=== PATIENT | male | born 1985 | race Caucasian/White ===

== ENCOUNTER → 2020-01-29 13:17 | Outpatient (BNVA) | payer SELFPAY | PROVIDERS: Visit Provider Nurse Practitioner Family | DX: J06.9 Acute upper respiratory infection, unspecified (principal); Z11.59 Encounter for screening for other viral diseases | CPT/HCPCS: 87635 ==

== ENCOUNTER 2021-11-21 11:24 | Emergency (ER) | payer OTHER, SELFPAY ==
[2021-11-21 11:26] VITALS: BP 119/73; PULSE 110; RESP 14; TEMP 37.9; O2SAT 97
--- NOTE | 2021-11-21 11:45 | XRR_ITS ---
PROCEDURE INFORMATION: Exam: XR Chest Exam date and time: 11/21/2021 2:16 PM Age: 36 years old Clinical indication: Dyspnea TECHNIQUE: Imaging protocol: Radiologic exam of the chest. Views: 1 view. COMPARISON: No relevant prior studies available. FINDINGS: Lungs: Unremarkable. No consolidation. Pleural spaces: Unremarkable. No pleural effusion. No pneumothorax. Heart/Mediastinum: Unremarkable. No cardiomegaly. Bones/joints: No acute abnormality. XR/XR chest 1V portable [id number] IMPRESSION: No acute findings.
[2021-11-21 13:25] LABS: Basophils % 0.3 %; Eosinophils # 0.1 10^3/uL (0.0-0.8); Eosinophils % 0.9 %; Hematocrit 45.3 % (42.0-52.0); Hemoglobin 16.2 g/dL (11.7-16.6); Lymphocytes # 0.4 10^3/uL (0.8-4.8); Lymphocytes % 4.2 %; Mean Corpuscular HGB Conc 35.8 g/dL (30.0-36.0); Mean Corpuscular Hemoglobin 30.2 pg (28.0-34.0); Mean Corpuscular Volume 84.4 fl (80-94); Mean Platelet Volume 10.7 fL (7.4-10.4); Monocytes % 9.6 %; Neutrophils # 8.51 10^3/uL (1.8-7.7); Neutrophils % 84.4 %; Nucleated Red Blood Cells % 0 %; Platelet Count 195 10^3/cmm (130-400); Red Blood Count 5.37 10^6/uL (4.1-5.3); Red Cell Distribution Width 11.5 % (12.1-15.1); White Blood Count 10.1 10^3/uL (4.0-10.0)
[2021-11-21 13:56] LABS: Anion Gap 16.1 (5-19); Blood Urea Nitrogen 9 mg/dL (6-20); Calcium 9.2 mg/dL (8.5-10.5); Carbon Dioxide 23 mmol/L (22-29); Chloride 101 mmol/L (98-107); Glomerular Filtration Rate 127.6 mL/min (90-130); Glucose 98 mg/dL (65-115); Osmolality Calculated 281 mOsm/kg (285-295); Potassium 4.1 mmol/L (3.5-5.1); Sodium 136 mmol/L (136-145)
--- NOTE | 2021-11-21 15:18 | ED_ITS ---
HPI - General Adult General: Chief complaint: General Medical Stated complaint: Chest pain, dizzy, sob Time Seen by Provider: 11/21/21 14:13 History of Present Illness: Patient is a 36-year-old male without any significant past medical who presents the emergency room after waking up at 5 AM with fatigue, generalized weakness, diffuse body aches, chest pressure, fatigue fever/chill and cough. Patient tells me that he has not been feeling well after waking up. Patient denies any sick contact reaction. Patient denies any loss of taste or smell. Patient denies any diarrhea, or decreased p.o. intake. No other focal complaints at this time. Onset:500am Duration:ongoing Location:home Severity:moderate Associated symptoms: Reports chest pain and malaise; Deny dyspnea, nausea, rash, palpitations or vomiting Review of Systems Const: Reports: chills, fatigue, malaise and other (+generalized weakness); Denies: fever(s) Eyes: Denies: change in vision ENMT: Denies: mouth pain Card: Reports: chest pain; Denies: palpitations Resp: Reports: non-productive cough; Denies: dyspnea GI: Denies: abdominal pain, nausea, vomiting or diarrhea : Denies: dysuria Musc: Denies: extremity pain Skin/Breast: Denies: rash or new lesions Neuro: Denies: weakness in extremities Psych: Reports: other (Normal mood) Bartolo/Lymph: Denies: easy bruising ON LICENSE OF [facility] ED PFSH: Medical History No pertinent past medical history Social History Smoking and tobacco status: never smoked Alcohol intake: never Substance/Drug Use: never Physical Exam Const: COMMON NORMALS: alert HENMT: COMMON NORMALS: atraumatic HEAD & SCALP: atraumatic MOUTH: moist mucous membranes abnormal Eye: COMMON NORMALS: EOMs intact bilaterally and conjunctivae normal CONJUNCTIVA: Yes conjunctivae normal Neck/C-Spine: COMMON NORMALS: full ROM and supple Resp: COMMON NORMALS: normal respiratory effort and clear to auscultation bilaterally AUSCULTATION: clear to auscultation bilaterally Cardio: RATE: tachycardic GI: COMMON NORMALS: Soft to palpation and non-tender PALPATION: Yes Soft to palpation Extremity: COMMON NORMALS: full ROM Neuro: SENSORIUM/ORIENTATION: Yes alert MOTOR EXAM: No Abnormal motor strength present and Other motor observations present (no focal motor deficits) Psych: COMMON NORMALS: speech normal SPEECH: Yes normal speech MOOD & AFFECT: Yes euthymic mood Course Vital Signs: Vital signs: Vital Signs Temperature 100.2 F H 11/21/21 11:26 Pulse Rate 89 11/21/21 16:21 Respiratory Rate 16 11/21/21 16:21 Blood Pressure 119/79 11/21/21 16:21 Pulse Oximetry 96 11/21/21 16:21 MDM - General Adult Medical Decision Making 36-year male presenting to the emergency room with concerns of cough, chest fever/chills, generalized weakness, body ache and chest pressure. Symptoms has been going on since 5 AM this morning. She has a low-grade fever 100.2 degrees axillary, mildly tachycardic to 110s, and is noted to have dry mucous membrane. Patient received 1 L fluid and tyleonl and reports improvement in pain. Symptoms are likely viral in nature. Viral swabs are sent at this time. HR improved after IVF. Patient has been able to tolerate PO in the ER. COVID swabs are sent at this time. Patient is instructed follow-up with [facility] of the next 24 to 48 hours. Patient will be excused from work until he has his COVID status result. Rx: Tylenol PRN pain Disposition: Discharge. Patient counseled regarding diagnostic impression, treatment plan. Patient given ED strict return precautions to return for continuation, worsening, or development of new symptoms. Instructed to f/u w/ PCP regarding symptoms today. Patient verbalized understanding. Lab Data : 11/21/21 13:11 11/21/21 13:11 Radiology Impressions Chest X-Ray 11/21/21 11:45 IMPRESSION: No acute findings. Laboratory Results WBC 10.1 10^3/uL (4.0-10.0) H 11/21/21 13:11 RBC 5.37 10^6/uL (4.1-5.3) H 11/21/21 13:11 Hgb 16.2 g/dL (11.7-16.6) 11/21/21 13:11 Hct 45.3 % (42.0-52.0) 11/21/21 13:11 MCV 84.4 fl (80-94) 11/21/21 13:11 MCH 30.2 pg (28.0-34.0) 11/21/21 13:11 MCHC 35.8 g/dL (30.0-36.0) 11/21/21 13:11 RDW 11.5 % (12.1-15.1) L 11/21/21 13:11 Plt Count 195 10^3/cmm (130-400) 11/21/21 13:11 MPV 10.7 fL (7.4-10.4) H 11/21/21 13:11 Neut % (Auto) 84.4 % 11/21/21 13:11 Lymph % (Auto) 4.2 % 11/21/21 13:11 [place] % (Auto) 9.6 % 11/21/21 13:11 Eos % (Auto) 0.9 % 11/21/21 13:11 Baso % (Auto) 0.3 % 11/21/21 13:11 Neut # (Auto) 8.51 10^3/uL (1.8-7.7) H 11/21/21 13:11 Lymph # (Auto) 0.4 10^3/uL (0.8-4.8) L 11/21/21 13:11 [place] # (Auto) 1.0 10^3/uL (0.2-0.9) H 11/21/21 13:11 Eos # (Auto) 0.1 10^3/uL (0.0-0.8) 11/21/21 13:11 Baso # (Auto) 0.0 10^3/uL (0.0-0.1) 11/21/21 13:11 Nucleated RBC % (auto) 0 % 11/21/21 13:11 Nucleated RBCs # 0.0 /100WBC 11/21/21 13:11 Sodium 136 mmol/L (136-145) 11/21/21 13:11 Potassium 4.1 mmol/L (3.5-5.1) 11/21/21 13:11 Chloride 101 mmol/L (98-107) 11/21/21 13:11 Carbon Dioxide 23 mmol/L (22-29) 11/21/21 13:11 Anion Gap 16.1 (5-19) 11/21/21 13:11 BUN 9 mg/dL (6-20) 11/21/21 13:11 Creatinine 0.7 mg/dL (0.7-1.2) 11/21/21 13:11 GFR Calculation 127.6 mL/min (90-130) 11/21/21 13:11 Glucose 98 mg/dL (65-115) 11/21/21 13:11 Calculated Osmolality 281 mOsm/kg (285-295) L 11/21/21 13:11 Calcium 9.2 mg/dL (8.5-10.5) 11/21/21 13:11 Influenza Type A Ag Negative (Negative) 11/21/21 15:18 Influenza Type B Ag Negative (Negative) 11/21/21 15:18 Imaging Data Other Imaging: Radiologist's impression: [id number] [id number] XRay Report Signed Patient: Ivan Tamez Unit #: [id number] : 1985 Age/Sex: 36 / M ADM Date: 11/21/21 Loc: ER Room/Bed: Attending Dr: Ordering Provider/Ordering MD: Rhianna Garcia MD Date of Service: 11/21/21 Procedure(s): XR chest 1V portable [id number] Accession Number(s): [id number] Report Number: [id number] PROCEDURE INFORMATION: Exam: XR Chest Exam date and time: 11/21/2021 2:16 PM Age: 36 years old Clinical indication: Dyspnea TECHNIQUE: Imaging protocol: Radiologic exam of the chest. Views: 1 view. COMPARISON: No relevant prior studies available. FINDINGS: Lungs: Unremarkable. No consolidation. Pleural spaces: Unremarkable. No pleural effusion. No pneumothorax. Heart/Mediastinum: Unremarkable. No cardiomegaly. Bones/joints: No acute abnormality. XR/XR chest 1V portable [id number] IMPRESSION: No acute findings. ? Dictated By: Farida Chairez Signed By: Farida Chairez Signed Date/Time: 11/21/21 1511 DD/ 1416 Discharge Plan Discharge Patient Disposition: Home Clinical Impression: Cough, Generalized weakness, Fatigue Condition: Stable Prescriptions: New acetaminophen 500 mg tablet 500 mg PO Q6H PRN (Reason: pain) 5 Days Qty: 20 0RF No Action omeprazole 20 mg Capsule,Delayed Release(Dr/Ec) 20 mg PO DAILY PRN (Reason: Acid Reflux) 0RF Discharge Orders: Discharge ED (Routine); Ordered 11/21/21 Ordered By: Rhianna Garica Discharge Diet: Advance as tolerated Discharge Activity: Increase activity as tolerated Patient Instructions: Acute Cough (ED) Activity Restrictions/Additional Instructions: Come back to the emergency room if your symptoms worsen, have any shortness of breath, fever/chills, dehydration, inability tolerate food or drinks, any difficulty breathing, or any new or concerning complaints. Stand Alone Forms: Work/School Release Coding Level of Care Code ED Senior Linux Systems Administrator for [employer] Fwd Exam Comprehensive
[2021-11-21] MEDS: sodium chloride 0.9% 1,000 ML 999 ML IV (15:23)
[2021-11-21] MEDS: acetaminophen 500 mg Tablet 1000 MG PO (15:23)
[2021-11-21 16:21] VITALS: BP 119/79; PULSE 89; RESP 16; O2SAT 96
[2021-11-21 16:22] LABS: Influenza A by IFA Negative (Negative); Influenza B by IFA Negative (Negative)
[2021-11-21 16:28] VITALS: TEMP 36.9
[2021-11-23 15:02] LABS: Quest SARS-CoV-2 RNA DETECTED (NOT DETECTED)
== END 2021-11-21 17:06 | disposition home or self-care (01) ==
PROVIDERS: Emergency Provider Emergency Medicine
DX: U07.1 COVID-19 (principal)
CPT/HCPCS: 71045; 80048; 85025; 87635; 87804; 96360; 99285; J7030

== ENCOUNTER → 2022-12-07 09:36 | Outpatient (BNVA) | payer OTHER, SELFPAY | PROVIDERS: Visit Provider Emergency Medicine | DX: M25.561 Pain in right knee (principal); L03.115 Cellulitis of right lower limb | CPT/HCPCS: 73562 ==

== ENCOUNTER 2022-12-09 04:49 | Emergency (ER) | payer OTHER, SELFPAY ==
--- NOTE | 2022-12-09 04:54 | ED_ITS ---
Documented by User: Humphrey Menendez MD 12/21/22 19:03 HPI - Extremity Problem General: Chief complaint: Extremity Injury, Lower Stated complaint: Rt Knee Swollen\Injury Time Seen by Provider: 12/09/22 04:53 History of Present Illness: Mr. Tamez is a 37-year-old gentleman without significant past medical history presenting to the emergency department for evaluation of knee pain. He notes few days ago thinking that he bumped it on the steering column of a forklift. He subsequently developed increased redness and was seen at clinic where he was diagnosed with cellulitis and put on Bactrim. This is day 2 of Bactrim. He has had increased pain in the right knee and worse with ambulation. He has had improvement in swelling with elevation and ice but pain is worse. Moderate to severe in intensity. No history of similar. No other specific changes in health, exacerbating, or alleviating factors identified. Onset (ago): day(s) Exacerbating factors: weight bearing, walking and palpation Review of Systems General: Reports: 10 or more systems reviewed and unremarkable except in HPI and below PFSH ED PFSH: Medical History No pertinent past medical history Social History Smoking and tobacco status: never smoked Alcohol intake: never Substance/Drug Use: never Physical Exam Const: COMMON NORMALS: alert GENERAL APPEARANCE: cooperative and well developed HENMT: COMMON NORMALS: normocephalic and atraumatic HEAD & SCALP: normocephalic and atraumatic Eye: COMMON NORMALS: conjunctivae normal CONJUNCTIVA: Yes conjunctivae normal SCLERA: sclerae normal Neck/C-Spine: COMMON NORMALS: supple GENERAL: Yes trachea midline Resp: COMMON NORMALS: normal respiratory effort EFFORT & INSPECTION: Yes able to speak in complete sentences Cardio: COMMON NORMALS: regular rate and regular rhythm RATE: regular rate RHYTHM: regular rhythm GI: COMMON NORMALS: Soft to palpation PALPATION: Yes Soft to palpation and No Tenderness to palpation present (GI) Extremity: NARRATIVE EXTREMITY EXAM: Right knee tenderness palpation. GENERAL: Yes normal exam except as noted and No edema Neuro: COMMON NORMALS: moves all extremities SENSORIUM/ORIENTATION: Yes alert and No Orientation impaired Psych: COMMON NORMALS: mental status grossly normal and Normal thought process present THOUGHT PROCESS: Normal thought process present Course Vital Signs: Vital signs: Vital Signs Temperature 98.4 F 12/09/22 05:14 Pulse Rate 86 12/09/22 07:58 Respiratory Rate 16 12/09/22 07:58 Blood Pressure 115/68 12/09/22 07:58 Pulse Oximetry 98 12/09/22 07:58 Oxygen Delivery Me thod Room Air 12/09/22 07:58 MDM - Extremity (Nontraumatic) Medical Decision Making 37-year-old gentleman presented to the emergency department for evaluation of right knee. Exam as above. Laboratory studies ordered and patient care handoff to Dr. Abdi pending completion of ED evaluation. Care assumed at change of shift Labs and imaging reviewed. No acute fracture patient does have appears to be a cellulitis I do not believe it is within the joint looks to be superficial. We will increase his Bactrim to 2 tablets p.o. twice [id number] with Ortho early next week for has any worsening or change return. Lab Data 12/09/22 05:34 12/09/22 05:34 Radiology Impressions Knee X-Ray 12/09/22 05:27 IMPRESSION: 1. No osseous or articular abnormality. 2. Prepatellar soft tissue edema. Laboratory Results WBC 16.2 10^3/uL (4.0-10.0) H 12/09/22 05:34 RBC 5.40 10^6/uL (4.1-5.3) H 12/09/22 05:34 Hgb 16.1 g/dL (11.7-16.6) 12/09/22 05:34 Hct 46.9 % (42.0-52.0) 12/09/22 05:34 MCV 86.9 fl (80-94) 12/09/22 05:34 MCH 29.8 pg (28.0-34.0) 12/09/22 05:34 MCHC 34.3 g/dL (30.0-36.0) 12/09/22 05:34 RDW 11.6 % (12.1-15.1) L 12/09/22 05:34 Plt Count 231 10^3/cmm (130-400) 12/09/22 05:34 MPV 10.2 fL (7.4-10.4) 12/09/22 05:34 Neut % (Auto) 66.9 % 12/09/22 05:34 Lymph % (Auto) 21.5 % 12/09/22 05:34 [place] % (Auto) 9.8 % 12/09/22 05:34 Eos % (Auto) 1.2 % 12/09/22 05:34 Baso % (Auto) 0.3 % 12/09/22 05:34 Neut # (Auto) 10.83 10^3/uL (1.8-7.7) H 12/09/22 05:34 Lymph # (Auto) 3.5 10^3/uL (0.8-4.8) 12/09/22 05:34 [place] # (Auto) 1.6 10^3/uL (0.2-0.9) H 12/09/22 05:34 Eos # (Auto) 0.2 10^3/uL (0.0-0.8) 12/09/22 05:34 Baso # (Auto) 0.1 10^3/uL (0.0-0.1) 12/09/22 05:34 Nucleated RBC % (auto) 0 % 12/09/22 05:34 Nucleated RBCs # 0.0 /100WBC 12/09/22 05:34 ESR 4 mm/hr (0-10) 12/09/22 05:34 Sodium 137 mmol/L (136-145) 12/09/22 05:34 Potassium 4.2 mmol/L (3.5-5.1) 12/09/22 05:34 Chloride 103 mmol/L (98-107) 12/09/22 05:34 Carbon Dioxide 22 mmol/L (22-29) 12/09/22 05:34 Anion Gap 16.2 (5-19) 12/09/22 05:34 BUN 9 mg/dL (6-20) 12/09/22 05:34 Creatinine 0.7 mg/dL (0.7-1.2) 12/09/22 05:34 GFR Calculation 126.9 mL/min (90-130) 12/09/22 05:34 Glucose 108 mg/dL (65-115) 12/09/22 05:34 Calculated Osmolality 283 mOsm/kg (285-295) L 12/09/22 05:34 Uric Acid 4.6 mg/dL (3.4-7.0) 12/09/22 05:34 Calcium 9.1 mg/dL (8.5-10.5) 12/09/22 05:34 Total Bilirubin 0.5 mg/dL (0.15-1.2) 12/09/22 05:34 AST 11 U/L (0-40) 12/09/22 05:34 ALT 18 U/L (0-41) 12/09/22 05:34 Alkaline Phosphatase 93 U/L (40-130) 12/09/22 05:34 C-Reactive Protein 40.7 mg/L (0.0-4.9) H 12/09/22 05:34 Total Protein 7.0 g/dL (6.6-8.7) 12/09/22 05:34 Albumin 4.6 g/dL (3.5-5.2) 12/09/22 05:34 Globulin 2.4 g/dL (1.3-4.6) 12/09/22 05:34 Discharge Plan Discharge Patient Disposition: Home Clinical Impression: Cellulitis of knee, right Condition: Stable Prescriptions: No Action sulfamethoxazole-trimethoprim 800-160 mg tablet 1 tab PO BID 10 Days Qty: 20 0RF Discharge Orders: Discharge ED (Routine); Ordered 12/09/22 Ordered By: Alonzo Abdi Discharge Diet: Usual diet Discharge Activity: Resume usual activity Patient Instructions: Opioid Safety, Pain Management Sign Out Sign Out Data: Patient Sign Out occurred on 12/09/22 at 06:20. Patient's care was discussed, and care was transferred from to Alonzo Abdi DO. Coding Level of Care Code ED Skip Tracer for Chg Fwd Documented by User: Alonzo Abdi DO 12/09/22 07:25 HPI - Extremity Problem General: Chief complaint: Extremity Injury, Lower Stated complaint: Rt Knee Swollen\Injury Time Seen by Provider: 12/09/22 04:53 PFSH ED PFSH: Medical History No pertinent past medical history Social History Smoking and tobacco status: never smoked Alcohol intake: never Substance/Drug Use: never Course Vital Signs: Vital signs: Vital Signs Temperature 98.4 F 12/09/22 05:14 Pulse Rate 86 12/09/22 07:58 Respiratory Rate 16 12/09/22 07:58 Blood Pressure 115/68 12/09/22 07:58 Pulse Oximetry 98 12/09/22 07:58 Oxygen Delivery Me thod Room Air 12/09/22 07:58 MDM - Extremity (Nontraumatic) Medical Decision Making Care assumed at change of shift Labs and imaging reviewed. No acute fracture patient does have appears to be a cellulitis I do not believe it is within the joint looks to be superficial. We will increase his Bactrim to 2 tablets p.o. twice [id number] with Ortho early next week for has any worsening or change return. Medical Records I reviewed the patient's medical records. Lab Data I reviewed the patient's lab results. 12/09/22 05:34 12/09/22 05:34 Radiology Impressions Knee X-Ray 12/09/22 05:27 IMPRESSION: 1. No osseous or articular abnormality. 2. Prepatellar soft tissue edema. Laboratory Results WBC 16.2 10^3/uL (4.0-10.0) H 12/09/22 05:34 RBC 5.40 10^6/uL (4.1-5.3) H 12/09/22 05:34 Hgb 16.1 g/dL (11.7-16.6) 12/09/22 05:34 Hct 46.9 % (42.0-52.0) 12/09/22 05:34 MCV 86.9 fl (80-94) 12/09/22 05:34 MCH 29.8 pg (28.0-34.0) 12/09/22 05:34 MCHC 34.3 g/dL (30.0-36.0) 12/09/22 05:34 RDW 11.6 % (12.1-15.1) L 12/09/22 05:34 Plt Count 231 10^3/cmm (130-400) 12/09/22 05:34 MPV 10.2 fL (7.4-10.4) 12/09/22 05:34 Neut % (Auto) 66.9 % 12/09/22 05:34 Lymph % (Auto) 21.5 % 12/09/22 05:34 [place] % (Auto) 9.8 % 12/09/22 05:34 Eos % (Auto) 1.2 % 12/09/22 05:34 Baso % (Auto) 0.3 % 12/09/22 05:34 Neut # (Auto) 10.83 10^3/uL (1.8-7.7) H 12/09/22 05:34 Lymph # (Auto) 3.5 10^3/uL (0.8-4.8) 12/09/22 05:34 [place] # (Auto) 1.6 10^3/uL (0.2-0.9) H 12/09/22 05:34 Eos # (Auto) 0.2 10^3/uL (0.0-0.8) 12/09/22 05:34 Baso # (Auto) 0.1 10^3/uL (0.0-0.1) 12/09/22 05:34 Nucleated RBC % (auto) 0 % 12/09/22 05:34 Nucleated RBCs # 0.0 /100WBC 12/09/22 05:34 ESR 4 mm/hr (0-10) 12/09/22 05:34 Sodium 137 mmol/L (136-145) 12/09/22 05:34 Potassium 4.2 mmol/L (3.5-5.1) 12/09/22 05:34 Chloride 103 mmol/L (98-107) 12/09/22 05:34 Carbon Dioxide 22 mmol/L (22-29) 12/09/22 05:34 Anion Gap 16.2 (5-19) 12/09/22 05:34 BUN 9 mg/dL (6-20) 12/09/22 05:34 Creatinine 0.7 mg/dL (0.7-1.2) 12/09/22 05:34 GFR Calculation 126.9 mL/min (90-130) 12/09/22 05:34 Glucose 108 mg/dL (65-115) 12/09/22 05:34 Calculated Osmolality 283 mOsm/kg (285-295) L 12/09/22 05:34 Uric Acid 4.6 mg/dL (3.4-7.0) 12/09/22 05:34 Calcium 9.1 mg/dL (8.5-10.5) 12/09/22 05:34 Total Bilirubin 0.5 mg/dL (0.15-1.2) 12/09/22 05:34 AST 11 U/L (0-40) 12/09/22 05:34 ALT 18 U/L (0-41) 12/09/22 05:34 Alkaline Phosphatase 93 U/L (40-130) 12/09/22 05:34 C-Reactive Protein 40.7 mg/L (0.0-4.9) H 12/09/22 05:34 Total Protein 7.0 g/dL (6.6-8.7) 12/09/22 05:34 Albumin 4.6 g/dL (3.5-5.2) 12/09/22 05:34 Globulin 2.4 g/dL (1.3-4.6) 12/09/22 05:34 Discharge Plan Discharge Patient Disposition: Home Clinical Impression: Cellulitis of knee, right Condition: Stable Prescriptions: No Action sulfamethoxazole-trimethoprim 800-160 mg tablet 1 tab PO BID 10 Days Qty: 20 0RF Discharge Orders: Discharge ED (Routine); Ordered 12/09/22 Ordered By: Alonzo Abdi Discharge Diet: Usual diet Discharge Activity: Resume usual activity Patient Instructions: Opioid Safety, Pain Management Sign Out Sign Out Data: Patient Sign Out occurred on 12/09/22 at 06:20. Patient's care was discussed, and care was transferred from to Alonzo Abdi DO. Coding Level of Care Code ED Skip Tracer for Eddy Petersen
[2022-12-09 05:14] VITALS: BP 136/85; PULSE 88; RESP 18; TEMP 36.9; O2SAT 97; BMI 25.8
--- NOTE | 2022-12-09 05:27 | XRR_ITS ---
PROCEDURE INFORMATION: Exam: XR Right Knee Exam date and time: 12/09/2022 5:38 AM Age: 37 years old Clinical indication: Injury or trauma; Other: Injured by forklift steering wheel; Blunt trauma; Knee; Right; Additional info: Knee pain, redness, swelling TECHNIQUE: Imaging protocol: Radiologic exam of the right knee. Views: 3 views. COMPARISON: CR XR knee RT 3V* [id number] 12/07/2022 10:02 AM FINDINGS: Bones/joints: Alignment is normal. Joint spaces are preserved. No acute fracture. No joint effusion. Soft tissues: Marked prepatellar edema. XR/XR knee RT 3V* [id number] IMPRESSION: 1. No osseous or articular abnormality. 2. Prepatellar soft tissue edema.
[2022-12-09] MEDS: ketorolac 30 mg/mL INJ 15 MG IVP (05:34)
[2022-12-09 05:39] LABS: Erythrocyte Sedimentation Rate 4 mm/hr (0-10)
[2022-12-09 05:41] LABS: Basophils # 0.1 10^3/uL (0.0-0.1); Basophils % 0.3 %; Eosinophils # 0.2 10^3/uL (0.0-0.8); Eosinophils % 1.2 %; Hematocrit 46.9 % (42.0-52.0); Hemoglobin 16.1 g/dL (11.7-16.6); Lymphocytes # 3.5 10^3/uL (0.8-4.8); Lymphocytes % 21.5 %; Mean Corpuscular HGB Conc 34.3 g/dL (30.0-36.0); Mean Corpuscular Hemoglobin 29.8 pg (28.0-34.0); Mean Corpuscular Volume 86.9 fl (80-94); Mean Platelet Volume 10.2 fL (7.4-10.4); Monocytes # 1.6 10^3/uL (0.2-0.9); Monocytes % 9.8 %; Neutrophils # 10.83 10^3/uL (1.8-7.7); Neutrophils % 66.9 %; Nucleated Red Blood Cells % 0 %; Platelet Count 231 10^3/cmm (130-400); Red Cell Distribution Width 11.6 % (12.1-15.1); White Blood Count 16.2 10^3/uL (4.0-10.0)
[2022-12-09 05:59] LABS: Alanine Aminotransferase 18 U/L (0-41); Albumin Level 4.6 g/dL (3.5-5.2); Alkaline Phosphatase 93 U/L (40-130); Anion Gap 16.2 (5-19); Aspartate Amino Transferase 11 U/L (0-40); Blood Urea Nitrogen 9 mg/dL (6-20); C Reactive Protein 40.7 mg/L (0.0-4.9); Calcium 9.1 mg/dL (8.5-10.5); Carbon Dioxide 22 mmol/L (22-29); Chloride 103 mmol/L (98-107); Creatinine Clr Calc Pharmacy 156.2551; Globulin 2.4 g/dL (1.3-4.6); Glomerular Filtration Rate 126.9 mL/min (90-130); Glucose 108 mg/dL (65-115); Osmolality Calculated 283 mOsm/kg (285-295); Potassium 4.2 mmol/L (3.5-5.1); Sodium 137 mmol/L (136-145); Total Bilirubin 0.5 mg/dL (0.15-1.2); Uric Acid 4.6 mg/dL (3.4-7.0)
[2022-12-09 06:45] VITALS: BP 141/99; PULSE 88; O2SAT 96
[2022-12-09 07:58] VITALS: BP 115/68; PULSE 86; RESP 16; O2SAT 98
--- NOTE | 2022-12-09 12:05 | PC.SOCIAL ---
Addendum entered by Corazon Shay 12/16/22 14:21: intellectual property manager received the following message from the ortho clinic regarding follow up appointment: per Dr. Mills nurse - we do not treat cellulitis and will need to f/u w/ PCP intellectual property manager called patient and explained that per the ortho clinic patient would need to follow up with his primary care physician. intellectual property manager offered to help patient get established with a primary care physician - patient declines at this time. Original Note: Ortho Referral Referral to ortho at this time. Clinic to contact patient with appt date/time.
== END 2022-12-09 07:59 | disposition home or self-care (01) ==
PROVIDERS: Emergency Medicine; Emergency Provider Family Medicine
DX: L03.115 Cellulitis of right lower limb (principal)
CPT/HCPCS: 73562; 80053; 84550; 85025; 85651; 86140; 96374; 99284; J1885